=== PATIENT | male | born 1975 | race Caucasian/White ===

== ENCOUNTER 2023-11-20 05:55 | Emergency (ER) | payer MEDICAID ==
[~2023-11-20] VITALS: Ht 170.2 cm; Wt 115.0 kg
[2023-11-20 06:14] VITALS: TEMP 98; O2SAT 99
[2023-11-20] MEDS ORDERED: ONDANSETRON 4MG ODT PO STA (08:26)
[2023-11-20] MEDS ORDERED: ACETAMINOPHEN 325MG TABLET PO STA (08:26)
[2023-11-20 08:40] LABS: EOSINOPHILS % 13.9 % (0.0-5.0); HEMATOCRIT. 46.4 % (42.0-52.0); HEMOGLOBIN. 15.3 g/dL (14.0-18.0); LYMPHOCYTES % 36.9 % (20.0-50.0); MEAN CORPUSCULAR HEMOGLOBIN 28.3 pg (28.0-32.0); MEAN CORPUSCULAR HGB CONC 32.9 g/dL (31.0-37.0); MEAN PLATELET VOLUME 7.6 fl (7.4-10.4); MONOCYTES % 7.4 % (2.0-8.0); NEUTROPHILS % 40.8 % (40.0-76.0); PLATELET 344 x1000/uL (130-400); RED BLOOD CELL COUNT 5.39 mill/uL (4.7-6.1); RED CELL DISTRIBUTION WIDTH 14.2 % (11.6-14.6); WHITE BLOOD COUNT 7.7 x1000/uL (4.5-11.0)
[2023-11-20 08:59] LABS: ALANINE AMINOTRANSFERASE 25 IU/L (10-49); ALBUMIN 4.9 g/dL (3.2-4.8); ASPARTATE AMINOTRANSFERASE 28 IU/L (<34); BILIRUBIN TOTAL 0.7 mg/dL (0.1-1.0); CALCIUM 8.9 mg/dL (8.7-10.4); CARBON DIOXIDE 29 mEq/L (21-32); CHLORIDE 102 mEq/L (98-107); CREATININE 0.8 mg/dL (0.6-1.3); GLUCOSE 116 mg/dL (70-105); POTASSIUM 4.3 mEq/L (3.5-5.1); PROTEIN TOTAL 7.6 g/dL (6.0-8.3); SODIUM 138 mEq/L (136-145); UREA NITROGEN BLOOD 11 mg/dL (9-23)
[2023-11-20] MEDS ORDERED: MAG-55 MT (09:46)
[2023-11-20] MEDS ORDERED: TOPUD PO (09:46)
[2023-11-20 11:53] VITALS: BP 138/87; PULSE 75; RESP 20
[2023-11-20] MEDS: ONDANSETRON 4MG ODT PO NR (11:53)
[2023-11-20] MEDS: ACETAMINOPHEN 325MG TABLET PO NR (11:53)
== END 2023-11-20 11:54 | disposition home or self-care (01) ==
LOC: ER 05:55
DX: R10.9 Unspecified abdominal pain (principal)
CPT/HCPCS: 99284; 76705; 80053; 83690; 85025; 36415; Q0162